=== PATIENT | male | born 2000 | race Two or more races ===

== ENCOUNTER 2024-02-11 20:47 | Emergency (ER) | payer OTHER ==
[2024-02-11 20:59] VITALS: BP 127/68; PULSE 71; RESP 19; TEMP 98.5; BMI 35.9
[2024-02-11 22:25] LABS: EPI CELLS 4 /uL (0-25.1); HYALINE CASTS 1 /uL (0-3.1); PH,URINE 5.5 (5.0-8.0); URINE APPEARANCE CLEAR; URINE BACTERIA 1 /uL (0-1359); URINE BILIRUBIN NEGATIVE (NEGATIVE); URINE COLOR YELLOW; URINE GLUCOSE (UA) NEGATIVE (NEGATIVE); URINE KETONE NEGATIVE (NEGATIVE); URINE LEUK ESTERASE NEGATIVE (NEGATIVE); URINE NITRITE NEGATIVE (NEGATIVE); URINE PROTEIN 1+ (NEGATIVE); URINE RBC 437 /uL (0-23.9); URINE UROBILINOGEN 0.2 mg/dL (0.2-1.0); URINE WBC 15 /uL (0-25.8)
== END 2024-02-11 22:37 | disposition home or self-care (01) ==
LOC: JERFT 20:47
DX: R31.0 Gross hematuria (principal); S37.33XA Laceration of urethra, initial encounter; X58.XXXA Exposure to other specified factors, initial encounter
CPT/HCPCS: 81003; 99283-25